=== PATIENT | female | born 1975 | race Caucasian/White ===

== ENCOUNTER 2022-12-29 20:42 | Emergency (ER) | payer OTHER ==
[~2022-12-29] VITALS: Ht 177.8 cm; Wt 70.3 kg
[2022-12-29] MEDS ORDERED: TDAP DIPH,PERTUSS,TET VAC/PF 0.5 ML DISP.SYRIN IM ONE ×2 (21:15→21:25)
[2022-12-29] MEDS ORDERED: LIDOCAINE HCL 2% 20 ML VIAL TP ONE (21:15)
[2022-12-29] MEDS ORDERED: LIDOCAINE HCL 2% 20 ML VIAL ONE (21:25)
[2022-12-29] MEDS ORDERED: ACET1TAB23 PO (22:03)
[2022-12-29] MEDS ORDERED: HYDROCODONE/APAP 10-325 MG TABLET ONE (22:26)
[2022-12-29] MEDS ORDERED: HYDROCODONE/APAP 10-325 MG TABLET PO ONE (22:30)
[2022-12-29 23:39] VITALS: BP 122/87; TEMP 97.6; O2SAT 100
== END 2022-12-29 23:40 | disposition home or self-care (01) ==
LOC: ER 20:52
DX: S62.634A Displaced fracture of distal phalanx of right ring finger, initial encounter for closed fracture (principal); S61.214A Laceration without foreign body of right ring finger without damage to nail, initial encounter; Z79.899 Other long term (current) drug therapy; W01.0XXA Fall on same level from slipping, tripping and stumbling without subsequent striking against object, initial encounter; Y93.89 Activity, other specified; Y92.89 Other specified places as the place of occurrence of the external cause; Y99.8 Other external cause status
CPT/HCPCS: 12001; 29125; 73140; 90471; 90715; 99283; J3490; A4606; A4663